=== PATIENT | male | born 1945 | race Caucasian/White ===

== ENCOUNTER 2016-10-03 11:02 | Emergency (ER) | payer MEDICARE, OTHER, SELFPAY ==
[~2016-10-03] VITALS: Ht 167.6 cm; Wt 50.8 kg
[2016-10-03 11:11] VITALS: BP 99/58
== END 2016-10-03 12:31 | disposition home or self-care (01) ==
LOC: ED 12:15
DX: R21 Rash and other nonspecific skin eruption (principal); D69.2 Other nonthrombocytopenic purpura; I10 Essential (primary) hypertension; J45.909 Unspecified asthma, uncomplicated
CPT/HCPCS: 99281